=== PATIENT | male | born 1975 | race African-American/Black ===

== ENCOUNTER 2020-04-06 01:58 | Emergency (ER) | payer OTHER ==
[~2020-04-06] VITALS: Ht 190.5 cm; Wt 90.7 kg
[2020-04-06 02:18] VITALS: Ht 190.5 cm; Wt 90.7 kg
[2020-04-06 03:10] LABS: BASOPHIL % 0.5 % (0-2); PLATELET COUNT 166 x10^3mcL (130-400); RED CELL DISTRIBUTION WIDTH 14.4 % (11.5-14.5)
[2020-04-06 03:27] LABS: CALCIUM 9.1 mg/dL (8.5-10.1); CARBON DIOXIDE 30.9 mmol/L (21-32); CHLORIDE SERUM 101 mmol/L (98-107); GFR1 > 60 mL/min; GLUCOSE SERUM 109 mg/dL (74-106); POTASSIUM SERUM 3.6 mmol/L (3.5-5.1); SODIUM SERUM 139 mmol/L (136-145)
[2020-04-06 03:32] LABS: ALBUMIN 3.7 g/dL (3.4-5.0); ALKALINE PHOSPHATASE 54 U/L (46-116); ALT/SGPT 76 U/L (16-63); AST/SGOT 71 U/L (15-37); BILIRUBIN TOTAL 0.9 mg/dL (0.20-1.00); TOTAL PROTEIN, SERUM 6.8 g/dL (6.4-8.2)
[2020-04-06 03:54] LABS: microscopic required? NO
[2020-04-06 04:01] LABS: UA SPECIFIC GRAVITY 1.015 (1.005-1.035); urine erythrocyte NEGATIVE (NEGATIVE)
[2020-04-06 04:11] LABS: AMPHETAMINE QUAL UR NONE DETECTED (See below)
[2020-04-06 06:47] VITALS: BP 127/85
== END 2020-04-06 06:47 | disposition home or self-care (01) ==
LOC: ED 01:58
PROVIDERS: Student in an Organized Health Care Education/Training Program
DX: F10.239 Alcohol dependence with withdrawal, unspecified (principal); R53.1 Weakness; R42 Dizziness and giddiness; Z88.5 Allergy status to narcotic agent; Y90.9 Presence of alcohol in blood, level not specified
CPT/HCPCS: J2060; J7030